=== PATIENT | female | born 1975 | race Two or more races ===

== ENCOUNTER 2020-06-19 22:10 | Emergency (ER) | payer OTHER ==
[~2020-06-19] VITALS: Ht 170.2 cm; Wt 132.9 kg
[~2020-06-19 22:10] MED LIST: HEMATRON P.O.1 UDTAB
[2020-06-20] MEDS ORDERED: VOLTAREN-XR100 MG PO (01:45)
== END 2020-06-20 01:52 | disposition home or self-care (01) ==
LOC: ER 22:10
DX: M25.552 Pain in left hip (principal)

== ENCOUNTER 2021-08-09 15:31 | Emergency (ER) | payer OTHER ==
[~2021-08-09] VITALS: Ht 170.2 cm; Wt 137.0 kg
[~2021-08-09 15:31] MED LIST changes: +VOLTAREN-XR100 MG PO
== END 2021-08-09 18:09 | disposition home or self-care (01) ==
LOC: ER 15:31
DX: U07.1 COVID-19 (principal)